=== PATIENT | female | born 1970 | race Caucasian/White ===

== ENCOUNTER 2022-07-25 15:52 | Inpatient (IN) | payer OTHER ==
[~2022-07-25] VITALS: Ht 165.1 cm; Wt 92.7 kg
[2022-07-25 15:52] VITALS: BP_SYST 134
--- NOTE | 2022-07-25 15:55 | NUR ---
Patient triaged and placed in waiting room. VSS and patient appears in no acute distress at this time. Accompanied by SELF, awaiting available bed, and MD notified of need for MSE.
--- NOTE | 2022-07-25 16:04 | NUR ---
SEEN AND EVALUATED BY DR RANGEL IN TRIAGE ROOM
[2022-07-25] MEDS ORDERED: NACL 0.9% 1,000 ML IV ONE ×2 (16:15→17:45)
[2022-07-25] MEDS ORDERED: MORPHINE 4 MG INJ. 4 MG/ML VIAL IVP ONE (16:15)
[2022-07-25] MEDS ORDERED: ONDANSETRON HCL 4 MG/2 ML VIAL IVP ONE (16:15)
[2022-07-25 17:12] LABS: BASOPHILS % (AUTO) 0.3 % (0.0-2.0); EOSINOPHILS # (AUTO) 0.1 K/uL (0.0-0.4); EOSINOPHILS % (AUTO) 0.8 % (0.0-4.0); HEMOGLOBIN 14.8 g/dL (12.0-16.0); LYMPHOCYTES # (AUTO) 2.5 K/uL (1.0-5.5); LYMPHOCYTES % (AUTO) 23.8 % (20.5-51.5); MEAN CORPUSCULAR HEMOGLOBIN 31 pg (27-31); MEAN CORPUSCULAR HGB CONC 35 % (32-36); MEAN CORPUSCULAR VOLUME 89 fL (79.0-98.0); MONOCYTES # (AUTO) 0.5 K/uL (0.0-1.0); MONOCYTES % (AUTO) 5.1 % (1.7-9.3); NEUTROPHILS # (AUTO) 7.5 K/uL (1.8-7.7); PLATELET COUNT (AUTO) 279 K/uL (130-430); RED BLOOD CELL COUNT(AUTO) 4.84 MIL/uL (4.2-6.2); RED CELL DISTRIBUTION WIDTH 13.1 % (9.0-15.0); WHITE BLOOD COUNT (AUTO) 10.7 K/uL (4.8-10.8)
[2022-07-25 17:35] LABS: CALCIUM 9.2 mg/dL (8.4-11.0); CREATININE 0.62 mg/dL (0.55-1.30)
[2022-07-25 17:40] LABS: ALBUMIN 3.7 g/dL (3.4-4.8); TOTAL BILIRUBIN 0.9 mg/dL (0.0-1.0)
--- NOTE | 2022-07-25 18:23 | NUR ---
BROUGHT BACK TO BED #7 AND REPORT GIVEN TO AGGIE
--- NOTE | 2022-07-25 19:45 | NUR ---
PT RESTING IN BED WITH EYES OPEN. PT VSS. PT REPORTING ABD PAIN 7/10. EVEN AND UNLABORED RESP NOTED.
[2022-07-25] MEDS ORDERED: ONDANSETRON HCL 4 MG/2 ML VIAL ONE (20:02)
[2022-07-25] MEDS ORDERED: MORPHINE 4 MG INJ. 4 MG/ML VIAL ONE (20:02)
[2022-07-25] MEDS ORDERED: NALOXONE HCL 0.4 MG/ML AMP (NARCAN) IVP PRN ×2 (20:30)
[2022-07-25] MEDS ORDERED: DEXTROSE 50% JECT 50 ML DISP.SYRIN IVP PRN (20:30)
[2022-07-25] MEDS ORDERED: ACETAMINOPHEN 650 MG/20.3 ML UDC GT PRN (20:30)
[2022-07-25] MEDS ORDERED: HYDROmorphone 1 MG/ML INJ. CARTRIDGE IVP PRN (20:30)
[2022-07-25] MEDS ORDERED: ONDANSETRON HCL 4 MG/2 ML VIAL IVP PRN (20:30)
--- NOTE | 2022-07-25 20:38 | NUR ---
COVID SWAB OBTAINED AND SENT TO LAB.
[2022-07-25] MEDS ORDERED: ROSU10TA2 PO (20:40)
[2022-07-25] MEDS ORDERED: LEVO112T5 PO (20:40)
[2022-07-25] MEDS ORDERED: GLIP10TA11 PO (20:40)
[2022-07-25] MEDS ORDERED: VITD400 PO (20:40)
[2022-07-25] MEDS ORDERED: LOSA25TA3 PO (20:40)
[2022-07-25] MEDS ORDERED: METF-379 PO (20:40)
--- NOTE | 2022-07-25 20:41 | NUR ---
Admit bed requested Patient will be admitted to care of Dr. BACH. Admitted to MED SURG unit. Diagnosis BILIARY COLIC AND CBD STONE Inpatient (Yes or No) YES Observation (Yes or No) NO Orientation concerns or request close to nursing station (Yes or No) NO Covid Status NEGATIVE On vent or bipap NO Isolation requirements NO Needs a sitter NO From Home (Yes or if No enter name of facility) YES Requires Dialysis (Yes or No) NO Med Rec Completed (Yes of No) YES
--- NOTE | 2022-07-25 20:42 | NUR ---
MED REC COMPLETED, INFORMATION PROVIDED BY PT.
--- NOTE | 2022-07-25 21:37 | NUR ---
Patient will be admitted to care of DR. BACH. Admitted to MED SURG unit. Will go to room 117. Belongings list completed. Complete and up to date summary report printed. SBAR report given TO ISAIAS STANLEY at bedside with opportunity for questions.
[2022-07-25 21:45] VITALS: BP_SYST 128
[2022-07-25 21:52] VITALS: BP_SYST 128
[2022-07-25] MEDS: HYDROcodone/ACETAMIN 5-325 MG TAB (NORCO/ VICODIN) PO PRN (22:45)
[2022-07-25] MEDS: FAMOTIDINE PF 20 MG/2 ML VIAL IVP SCH (22:45)
[2022-07-25] MEDS: metroNIDAZOLE 500 mg/NS 100 ML IV SCH (22:59)
[2022-07-25] MEDS: LR 1,000 ML IV SCH (22:59)
--- NOTE | 2022-07-25 23:55 | NUR ---
Received pt from ED at 2145 pm. Pt awake and oriented. Ambulatory. C/o mid abdominal pain. no c/o Nausea. Started Levaquin 500 mg ivpb and [place] 5-325 mg 1 tab po with Pepcid 20 mg ivp. Then when Levaqiun infusion was almost completed pt c/o whole body itching-itching stated with beginning of Levaquin infusion. Called Dr Adame and d/c'd Levaquin order and given Benadryl 25 mg ivp.
[2022-07-26] MEDS ORDERED: DIPHENHYDRAMINE INJ 50 MG/ML VIAL IVP PRN (00:15)
[2022-07-26 00:26] VITALS: BP_SYST 141
--- NOTE | 2022-07-26 03:56 | NUR ---
Consultation Paged Reason for Consultation: Acute Pancreatitis, CBD Stone Was consult called: Y Person who was notified: Floresita Consulting Physician: Dr. Fontenot (Dr. Carmen is spinneret person) Ordering Physician: Dr. Adame
--- NOTE | 2022-07-26 04:23 | NUR ---
No more c/o itching. Clear liquid diet. IVF LR @ 150 ml/hr on Lt AC # 20 G. Pt slept after Benadryl ivp.
[2022-07-26] MEDS: metroNIDAZOLE 500 mg/NS 100 ML IV SCH ×3 (05:39→22:33)
[2022-07-26] MEDS: LEVOTHYROXINE SODIUM 0.112 MG TABLET PO SCH (05:42)
[2022-07-26] MEDS: LR 1,000 ML IV SCH ×3 (05:48→17:05)
[2022-07-26 06:13] LABS: BASOPHILS % (AUTO) 0.3 % (0.0-2.0); EOSINOPHILS # (AUTO) 0.2 K/uL (0.0-0.4); EOSINOPHILS % (AUTO) 2.1 % (0.0-4.0); HEMATOCRIT 40.1 % (36-48); HEMOGLOBIN 13.6 g/dL (12.0-16.0); LYMPHOCYTES # (AUTO) 2.9 K/uL (1.0-5.5); LYMPHOCYTES % (AUTO) 33.5 % (20.5-51.5); MEAN CORPUSCULAR HEMOGLOBIN 30 pg (27-31); MEAN CORPUSCULAR HGB CONC 34 % (32-36); MEAN CORPUSCULAR VOLUME 90 fL (79.0-98.0); MONOCYTES # (AUTO) 0.6 K/uL (0.0-1.0); MONOCYTES % (AUTO) 7.2 % (1.7-9.3); NEUTROPHILS % (AUTO) 56.9 % (40.0-70.0); PLATELET COUNT (AUTO) 252 K/uL (130-430); RED BLOOD CELL COUNT(AUTO) 4.46 MIL/uL (4.2-6.2); RED CELL DISTRIBUTION WIDTH 12.9 % (9.0-15.0); WHITE BLOOD COUNT (AUTO) 8.7 K/uL (4.8-10.8)
[2022-07-26 06:32] LABS: BILIRUBIN,URINE 1+ (NEGATIVE); COLOR,URINE YELLOW (YELLOW); GLUCOSE,URINE NEGATIVE (NEGATIVE); KETONES,URINE TRACE (NEGATIVE); LEUKOCYTE ESTERASE ,URINE TRACE (NEGATIVE); NITRITE, URINE NEGATIVE (NEGATIVE); PH,URINE 5.5 (5.0-8.0); PROTEIN URINE NEGATIVE (NEGATIVE); UROBILINOGEN,URINE 0.2 (0.2-1.0)
--- NOTE | 2022-07-26 06:36 | NUR ---
PT'S RECEIVING FLAGYL 500 MG IVPB- NO C/O ITCHING. AMBULATORY. NO BM. NO C/O ABDOMINAL PAIN.
[2022-07-26 06:38] LABS: BLOOD, URINE TRACE (NEGATIVE)
[2022-07-26 06:39] LABS: CLARITY/URINE SLIGHTLY CLOUDY (CLEAR)
[2022-07-26 06:45] LABS: BACTERIA,URINE FEW /HPF (None Seen)
[2022-07-26 06:46] LABS: MUCUS,URINE 1+ /LPF (None Seen)
[2022-07-26 07:37] LABS: ALBUMIN 2.8 g/dL (3.4-4.8); CALCIUM 8.3 mg/dL (8.4-11.0); CREATININE 0.54 mg/dL (0.55-1.30); PHOSPHORUS 4.4 mg/dL (2.7-4.5); TOTAL BILIRUBIN 0.8 mg/dL (0.0-1.0)
--- NOTE | 2022-07-26 07:44 | NUR ---
SBAR was given to Shanna STANLEY.
[2022-07-26 08:00] VITALS: BP_SYST 155
[2022-07-26] MEDS: CHOLECALCIFEROL (VITAMIN D-3) 400 UNIT TABLET PO SCH (08:56)
[2022-07-26] MEDS: LOSARTAN POTASSIUM 25 MG TABLET PO SCH (08:56)
[2022-07-26] MEDS: HYDROcodone/ACETAMIN 5-325 MG TAB (NORCO/ VICODIN) PO PRN ×2 (08:56→17:12)
[2022-07-26] MEDS: FAMOTIDINE PF 20 MG/2 ML VIAL IVP SCH ×2 (08:56→22:32)
[2022-07-26 11:58] VITALS: BP_SYST 128
[2022-07-26] MEDS: INSULIN REGULAR, HUMAN 100 UNITS/ML, 3 ML VIAL (humuLIN R) SUBCUT PRN (12:09)
[2022-07-26 16:41] VITALS: BP_SYST 130
--- NOTE | 2022-07-26 18:36 | NUR ---
PATIENT RESTING IN BED, AAO x4, RESPIRATIONS EVEN AND UL ON RA, DENIES PAIN/DISCOMFORT. ALL NEEDS MET. IVF INFUSING PER MD ORDER, IV SITE WNL. SAFETY MEASURES IN PLACE, CALL LIGHT IN REACH. WILL CONTINUE TO MONITOR AND ENDORSE TO PM NURSE FOR CONTINUITY OF CARE.
[2022-07-26 20:00] VITALS: BP_SYST 135
[2022-07-27] VITALS: BP_SYST 124
[2022-07-27] MEDS: HYDROcodone/ACETAMIN 5-325 MG TAB (NORCO/ VICODIN) PO PRN ×3 (02:25→20:15)
[2022-07-27] MEDS: LR 1,000 ML IV SCH ×4 (06:23→17:40)
[2022-07-27] MEDS: LEVOTHYROXINE SODIUM 0.112 MG TABLET PO SCH (06:23)
[2022-07-27] MEDS: metroNIDAZOLE 500 mg/NS 100 ML IV SCH ×3 (06:28→22:06)
[2022-07-27 07:26] LABS: BASOPHILS % (AUTO) 0.4 % (0.0-2.0); EOSINOPHILS # (AUTO) 0.2 K/uL (0.0-0.4); EOSINOPHILS % (AUTO) 2.5 % (0.0-4.0); HEMOGLOBIN 12.5 g/dL (12.0-16.0); LYMPHOCYTES # (AUTO) 2.7 K/uL (1.0-5.5); MEAN CORPUSCULAR HEMOGLOBIN 30 pg (27-31); MEAN CORPUSCULAR HGB CONC 34 % (32-36); MEAN CORPUSCULAR VOLUME 89 fL (79.0-98.0); MONOCYTES # (AUTO) 0.5 K/uL (0.0-1.0); NEUTROPHILS # (AUTO) 3.8 K/uL (1.8-7.7); NEUTROPHILS % (AUTO) 53.1 % (40.0-70.0); PLATELET COUNT (AUTO) 232 K/uL (130-430); RED BLOOD CELL COUNT(AUTO) 4.14 MIL/uL (4.2-6.2); RED CELL DISTRIBUTION WIDTH 13.2 % (9.0-15.0); WHITE BLOOD COUNT (AUTO) 7.2 K/uL (4.8-10.8)
--- NOTE | 2022-07-27 07:31 | NUR ---
Pt not in acute distress,denies pain this morning,able to make needs known,VSS, IVF infusing, NPO since midnight, no signsofhypo/hyperglycemia, endorsed care to oncoming RN.
[2022-07-27 07:37] LABS: ALBUMIN 2.7 g/dL (3.4-4.8); BILIRUBIN,DIRECT 0.2 mg/dL (0.0-0.3); CALCIUM 8.5 mg/dL (8.4-11.0); CREATININE 0.45 mg/dL (0.55-1.30); TOTAL BILIRUBIN 0.6 mg/dL (0.0-1.0)
[2022-07-27 07:48] LABS: PROTHROMBIN TIME 10.9 SECS (9.5-12.5)
[2022-07-27 08:00] VITALS: BP_SYST 140
[2022-07-27] MEDS: CHOLECALCIFEROL (VITAMIN D-3) 400 UNIT TABLET PO SCH ×2 (08:57→09:03)
[2022-07-27] MEDS: FAMOTIDINE PF 20 MG/2 ML VIAL IVP SCH ×2 (08:57→20:14)
[2022-07-27] MEDS: LOSARTAN POTASSIUM 25 MG TABLET PO SCH ×2 (08:57→09:03)
[2022-07-27] MEDS ORDERED: INDOMETHACIN 50 MG SUPP.RECT RC ONE (10:30)
[2022-07-27] MEDS ORDERED: ONDANSETRON HCL 4 MG/2 ML VIAL ONE (11:50)
[2022-07-27] MEDS ORDERED: PROPOFOL 200MG/ 20ML VIAL (DIPRIVAN) IV ONE (11:50)
[2022-07-27] MEDS ORDERED: METOCLOPRAMIDE HCL 10 MG/2 ML VIAL ONE (11:50)
[2022-07-27] MEDS ORDERED: SUCCINYLCHOLINE CHLORIDE 20 MG/ML(QUELICIN) ONE (11:50)
[2022-07-27] MEDS ORDERED: KETOROLAC TROMETHAMINE 30 MG VIAL ONE (11:50)
[2022-07-27] MEDS ORDERED: GLYCOPYRROLATE 0.2 MG/ML VIAL ONE (11:50)
[2022-07-27] MEDS ORDERED: ceFAZolin SODIUM 1 GM VIAL ONE (11:50)
[2022-07-27] MEDS ORDERED: LR 1,000 ML IV.SOLN IV ONE (11:50)
[2022-07-27] MEDS ORDERED: ROCURONIUM BROMIDE 10 MG/ML (ZEMURON) ONE (11:50)
[2022-07-27] MEDS ORDERED: MIDAZOLAM HCL 2 MG/2 ML VIAL (VERSED) ONE (11:50)
[2022-07-27] MEDS ORDERED: fentaNYL CITRATE/PF 100 MCG/2 ML AMP ONE (11:50)
[2022-07-27] MEDS ORDERED: SEVOFLURANE 15 MIN GAS INH ONE ×2 (11:50)
[2022-07-27] MEDS ORDERED: ONDANSETRON HCL 4 MG/2 ML VIAL IVP PRN (12:45)
[2022-07-27] MEDS ORDERED: METOCLOPRAMIDE HCL 10 MG/2 ML VIAL IVP PRN (12:45)
[2022-07-27] MEDS ORDERED: NALOXONE HCL 0.4 MG/ML AMP (NARCAN) IVP PRN (12:45)
[2022-07-27] MEDS ORDERED: HYDROmorphone 1 MG/ML INJ. CARTRIDGE IVP PRN (12:45)
[2022-07-27] MEDS ORDERED: KETOROLAC TROMETHAMINE 30 MG VIAL IVP PRN (12:45)
[2022-07-27 13:14] VITALS: BP_SYST 140
[2022-07-27 14:23] VITALS: BP_SYST 128
--- NOTE | 2022-07-27 14:23 | NUR ---
PATIENT BACK FROM O.R. PATIENT IN STABLE CONDITION. NO COMPLAINS OF PAIN. VS STABLE.
[2022-07-28] MEDS: LR 1,000 ML IV SCH ×3 (01:01→16:51)
[2022-07-28] MEDS: LEVOTHYROXINE SODIUM 0.112 MG TABLET PO SCH (06:21)
[2022-07-28] MEDS: metroNIDAZOLE 500 mg/NS 100 ML IV SCH ×3 (06:22→21:16)
[2022-07-28 07:55] VITALS: BP_SYST 145
[2022-07-28 07:58] LABS: ALBUMIN 2.8 g/dL (3.4-4.8); CALCIUM 8.6 mg/dL (8.4-11.0); CREATININE 0.5 mg/dL (0.55-1.30); TOTAL BILIRUBIN 0.7 mg/dL (0.0-1.0)
[2022-07-28 07:59] LABS: BASOPHILS % (AUTO) 0.2 % (0.0-2.0); EOSINOPHILS # (AUTO) 0.1 K/uL (0.0-0.4); EOSINOPHILS % (AUTO) 1.2 % (0.0-4.0); HEMATOCRIT 37.2 % (36-48); HEMOGLOBIN 12.6 g/dL (12.0-16.0); LYMPHOCYTES # (AUTO) 2.3 K/uL (1.0-5.5); LYMPHOCYTES % (AUTO) 29.3 % (20.5-51.5); MEAN CORPUSCULAR HEMOGLOBIN 30 pg (27-31); MEAN CORPUSCULAR HGB CONC 34 % (32-36); MEAN CORPUSCULAR VOLUME 89 fL (79.0-98.0); MONOCYTES # (AUTO) 0.6 K/uL (0.0-1.0); MONOCYTES % (AUTO) 7.9 % (1.7-9.3); NEUTROPHILS # (AUTO) 4.9 K/uL (1.8-7.7); NEUTROPHILS % (AUTO) 61.4 % (40.0-70.0); PLATELET COUNT (AUTO) 242 K/uL (130-430); RED BLOOD CELL COUNT(AUTO) 4.16 MIL/uL (4.2-6.2); RED CELL DISTRIBUTION WIDTH 12.8 % (9.0-15.0)
[2022-07-28 08:09] LABS: BILIRUBIN,DIRECT 0.3 mg/dL (0.0-0.3)
[2022-07-28] MEDS: LOSARTAN POTASSIUM 25 MG TABLET PO SCH (09:49)
[2022-07-28] MEDS: FAMOTIDINE PF 20 MG/2 ML VIAL IVP SCH ×2 (09:49→20:31)
--- NOTE | 2022-07-28 10:10 | NUR ---
LUKE TAM FOR MEDREC AND BP. Addendum: 07/28/22 at 1011 by Rambo Lobo RN AMADOU PT. PLS DISREGARD THIS NOTE.
--- NOTE | 2022-07-28 10:11 | NUR ---
PAGED DR BACH FOR ORDER FOR SURGICAL CONSULT.
[2022-07-28] MEDS: HYDROcodone/ACETAMIN 5-325 MG TAB (NORCO/ VICODIN) PO PRN ×2 (11:48→20:46)
[2022-07-28] MEDS: INSULIN REGULAR, HUMAN 100 UNITS/ML, 3 ML VIAL (humuLIN R) SUBCUT PRN ×3 (11:52→20:47)
--- NOTE | 2022-07-28 13:52 | NUR ---
CONSULTATION PAGED/CALLED Reason for Consultation: [] CHOLECYSTECTOMY Person Who was Notified: [] ROMA Consulting Physician: [] DR DUNHAM Research Clerk Specialty: [] GEN SURGEON Ordering Physician: [] DR BACH
[2022-07-28 16:10] VITALS: BP_SYST 137
[2022-07-28 20:15] VITALS: BP_SYST 138
[2022-07-29 00:15] VITALS: BP_SYST 126
[2022-07-29] MEDS: LR 1,000 ML IV SCH ×4 (00:43→17:54)
[2022-07-29] MEDS: metroNIDAZOLE 500 mg/NS 100 ML IV SCH ×3 (05:39→21:10)
[2022-07-29] MEDS: LEVOTHYROXINE SODIUM 0.112 MG TABLET PO SCH (06:00)
--- NOTE | 2022-07-29 06:00 | NUR ---
Closing notes Pt awake, resting, no s/s distress noted. BS checked 158. No c/o pain at this time. Pt ambulates to bathroom. IVF infusing at ordered rate L. AC no s/s infiltration. Call light within reach. To endorse to AM nurse.
[2022-07-29] MEDS: INSULIN REGULAR, HUMAN 100 UNITS/ML, 3 ML VIAL (humuLIN R) SUBCUT PRN ×4 (06:01→22:01)
[2022-07-29 06:54] LABS: BASOPHILS % (AUTO) 0.4 % (0.0-2.0); EOSINOPHILS # (AUTO) 0.2 K/uL (0.0-0.4); EOSINOPHILS % (AUTO) 3.3 % (0.0-4.0); HEMATOCRIT 34.4 % (36-48); HEMOGLOBIN 11.9 g/dL (12.0-16.0); LYMPHOCYTES # (AUTO) 2.1 K/uL (1.0-5.5); LYMPHOCYTES % (AUTO) 29.8 % (20.5-51.5); MEAN CORPUSCULAR HEMOGLOBIN 31 pg (27-31); MEAN CORPUSCULAR HGB CONC 35 % (32-36); MEAN CORPUSCULAR VOLUME 90 fL (79.0-98.0); MONOCYTES # (AUTO) 0.7 K/uL (0.0-1.0); MONOCYTES % (AUTO) 9.5 % (1.7-9.3); PLATELET COUNT (AUTO) 217 K/uL (130-430); RED BLOOD CELL COUNT(AUTO) 3.85 MIL/uL (4.2-6.2); RED CELL DISTRIBUTION WIDTH 12.8 % (9.0-15.0); WHITE BLOOD COUNT (AUTO) 6.9 K/uL (4.8-10.8)
[2022-07-29 07:27] LABS: ALBUMIN 2.7 g/dL (3.4-4.8); BILIRUBIN,DIRECT 0.2 mg/dL (0.0-0.3); CALCIUM 8.4 mg/dL (8.4-11.0); CREATININE 0.48 mg/dL (0.55-1.30); TOTAL BILIRUBIN 0.6 mg/dL (0.0-1.0)
[2022-07-29 07:46] VITALS: BP_SYST 134
[2022-07-29] MEDS: LOSARTAN POTASSIUM 25 MG TABLET PO SCH (08:28)
[2022-07-29] MEDS: CHOLECALCIFEROL (VITAMIN D-3) 400 UNIT TABLET PO SCH (08:28)
[2022-07-29] MEDS: FAMOTIDINE PF 20 MG/2 ML VIAL IVP SCH ×2 (08:29→21:10)
[2022-07-29 17:45] VITALS: BP_SYST 128
--- NOTE | 2022-07-29 18:58 | NUR ---
PT HAS BEEN STABLE THE WHOLE SHIFT, NO C/O OF PAIN. CONTINUED ON CLEAR LIQUIDS. WILL BE NPO P MN FOR SURGERY IN AM. CONSENT IRENA BY PT.
[2022-07-29 20:05] VITALS: BP_SYST 147
--- NOTE | 2022-07-29 21:16 | NUR ---
Opening notes Pt AAOx4, working on her laptop, VSS. No c/o pain. IVF infusing at ordered rate L. AC 20G clear and patent. Pt updated with plan of care re surgery tomorrow and NPO after midnight, pt verbalized understanding. Call light within reach. To monitor.
--- NOTE | 2022-07-30 00:20 | NUR ---
PT NPO for surgery in AM.
[2022-07-30 00:30] VITALS: BP_SYST 144
[2022-07-30] MEDS: LR 1,000 ML IV SCH ×4 (02:00→20:50)
[2022-07-30] MEDS: metroNIDAZOLE 500 mg/NS 100 ML IV SCH ×3 (05:03→21:02)
[2022-07-30] MEDS: LEVOTHYROXINE SODIUM 0.112 MG TABLET PO SCH (06:07)
[2022-07-30 08:17] VITALS: BP_SYST 152
[2022-07-30 08:26] LABS: ALBUMIN 2.6 g/dL (3.4-4.8); BASOPHILS % (AUTO) 0.2 % (0.0-2.0); CALCIUM 8.5 mg/dL (8.4-11.0); CREATININE 0.39 mg/dL (0.55-1.30); EOSINOPHILS # (AUTO) 0.3 K/uL (0.0-0.4); HEMATOCRIT 35.3 % (36-48); LYMPHOCYTES # (AUTO) 2.1 K/uL (1.0-5.5); LYMPHOCYTES % (AUTO) 24.5 % (20.5-51.5); MEAN CORPUSCULAR HEMOGLOBIN 30 pg (27-31); MEAN CORPUSCULAR HGB CONC 34 % (32-36); MEAN CORPUSCULAR VOLUME 89 fL (79.0-98.0); MONOCYTES # (AUTO) 0.7 K/uL (0.0-1.0); MONOCYTES % (AUTO) 7.8 % (1.7-9.3); NEUTROPHILS # (AUTO) 5.5 K/uL (1.8-7.7); NEUTROPHILS % (AUTO) 64.5 % (40.0-70.0); PLATELET COUNT (AUTO) 231 K/uL (130-430); RED BLOOD CELL COUNT(AUTO) 3.97 MIL/uL (4.2-6.2); RED CELL DISTRIBUTION WIDTH 12.7 % (9.0-15.0); TOTAL BILIRUBIN 0.5 mg/dL (0.0-1.0); WHITE BLOOD COUNT (AUTO) 8.5 K/uL (4.8-10.8)
[2022-07-30 08:33] LABS: INR 1.1 (0.8-1.2); PROTHROMBIN TIME 11.3 SECS (9.5-12.5)
[2022-07-30] MEDS: FAMOTIDINE PF 20 MG/2 ML VIAL IVP SCH ×2 (09:19→20:51)
[2022-07-30 13:14] VITALS: BP_SYST 153
[2022-07-30] MEDS ORDERED: POTASSIUM CHLORIDE 40 MEQ in NS 250 ML IV ONE (15:00)
[2022-07-30] MEDS ORDERED: NS IRRIG SOLN 1000 ML IR ONE (17:54)
[2022-07-30] MEDS ORDERED: NS 1000 ML IV.SOLN IV ONE (17:54)
[2022-07-30] MEDS ORDERED: DEXAMETHASONE SOD PHOSPHATE 4 MG/ML VIAL ONE (17:54)
[2022-07-30] MEDS ORDERED: MIDAZOLAM HCL 2 MG/2 ML VIAL (VERSED) ONE (17:54)
[2022-07-30] MEDS ORDERED: ceFAZolin SODIUM 2 GM VIAL ONE (17:54)
[2022-07-30] MEDS ORDERED: SEVOFLURANE 15 MIN GAS INH ONE (17:54)
[2022-07-30] MEDS ORDERED: LIDOCAINE 1% 10 MG/ML, 20 ML MDV ONE (17:54)
[2022-07-30] MEDS ORDERED: BUPIVACAINE /EPINEPHRINE/PF 0.5% 30 ML VIAL INJ ONE (17:54)
[2022-07-30] MEDS ORDERED: SUGAMMADEX SODIUM 200 MG/2 ML VIAL IV ONE (17:54)
[2022-07-30] MEDS ORDERED: GLYCOPYRROLATE 0.2 MG/ML VIAL ONE (17:54)
[2022-07-30] MEDS ORDERED: fentaNYL CITRATE/PF 100 MCG/2 ML AMP ONE (17:54)
[2022-07-30] MEDS ORDERED: ONDANSETRON HCL 4 MG/2 ML VIAL ONE (17:54)
[2022-07-30] MEDS ORDERED: LR 1,000 ML IV.SOLN IV ONE (17:54)
[2022-07-30] MEDS ORDERED: ROCURONIUM BROMIDE 10 MG/ML (ZEMURON) ONE (17:54)
[2022-07-30] MEDS ORDERED: PROPOFOL 200MG/ 20ML VIAL (DIPRIVAN) IV ONE (17:54)
[2022-07-30] MEDS ORDERED: METOCLOPRAMIDE HCL 10 MG/2 ML VIAL ONE (17:54)
[2022-07-30 18:48] VITALS: BP_SYST 129
[2022-07-30] MEDS ORDERED: ACETAMINOPHEN 325 MG TABLET PO PRN (19:15)
[2022-07-30] MEDS ORDERED: D5/0.45 NS 1,000 ML IV SCH (19:15)
[2022-07-30] MEDS ORDERED: HYDROmorphone 1 MG/ML INJ. CARTRIDGE IVP PRN (19:15)
[2022-07-30] MEDS ORDERED: NALOXONE HCL 0.4 MG/ML AMP (NARCAN) IVP PRN ×2 (19:15)
[2022-07-30] MEDS ORDERED: HYDROcodone/ACETAMIN 5-325 MG TAB (NORCO/ VICODIN) PO PRN (19:15)
[2022-07-30] MEDS ORDERED: metroNIDAZOLE 500 mg/NS 100 ML IV SCH (19:15)
[2022-07-30] MEDS ORDERED: ONDANSETRON HCL 4 MG/2 ML VIAL IVP PRN (19:15)
[2022-07-30 20:25] VITALS: BP_SYST 139
--- NOTE | 2022-07-30 20:30 | NUR ---
RECEIVED PT FROM OR VIA JANET POLLARD AOX4, S/O LAP DENISE, TWO IV ACCESS ON THE L HAND, VSS, 4 ABD INCISIONS, CLEAN, DRY AND INTACT, COVERED WITH PRESSURE DSG AND TEGADERM. PT STARTED ON IV FLUID LR AT 150CC, NOT VOIDED POST SURGERY, STATED SHE DOES NOT FEEL LIKE SHE NEEDS TO VOID AT THIS TIME, SCD ON BLE, FAMILY AT BEDSIDE, WILL CONTINUE WITH PLAN OF CARE
[2022-07-30] MEDS: CEFAZOLIN 2 GM IVPB PREMIX 50 ML IV SCH (20:50)
[2022-07-30] MEDS: INSULIN REGULAR, HUMAN 100 UNITS/ML, 3 ML VIAL (humuLIN R) SUBCUT PRN (21:05)
[2022-07-31 00:18] VITALS: BP_SYST 150
[2022-07-31] MEDS: LR 1,000 ML IV SCH (03:08)
[2022-07-31] MEDS: CEFAZOLIN 2 GM IVPB PREMIX 50 ML IV SCH (05:28)
[2022-07-31] MEDS: metroNIDAZOLE 500 mg/NS 100 ML IV SCH ×2 (05:28→14:58)
[2022-07-31] MEDS: LEVOTHYROXINE SODIUM 0.112 MG TABLET PO SCH (06:09)
[2022-07-31] MEDS: INSULIN REGULAR, HUMAN 100 UNITS/ML, 3 ML VIAL (humuLIN R) SUBCUT PRN ×2 (06:11→12:19)
--- NOTE | 2022-07-31 06:59 | NUR ---
PT AWAKE IN BED, AOX4, S/O LAP DENISE, EVEN AND UNLABORED BREATHING, DENIED SOB,CP,N/V OR PAIN,VSS, 4 ABD INCISIONS, CLEAN, DRY AND INTACT, COVERED WITH PRESSURE DSG AND TEGADERM. PT STARTED ON LR AT 150CC, VOIDED W/O DIFFICULTY, SCD ON BLE, NOW TOLERATING CLEAR LIQUID DIET, BPR,WILL ENDORSE TO INCOMING RN
[2022-07-31 07:04] LABS: BASOPHILS % (AUTO) 0.1 % (0.0-2.0); HEMATOCRIT 34.9 % (36-48); LYMPHOCYTES # (AUTO) 1.6 K/uL (1.0-5.5); LYMPHOCYTES % (AUTO) 17.1 % (20.5-51.5); MEAN CORPUSCULAR HEMOGLOBIN 31 pg (27-31); MEAN CORPUSCULAR HGB CONC 34 % (32-36); MEAN CORPUSCULAR VOLUME 89 fL (79.0-98.0); MONOCYTES # (AUTO) 0.7 K/uL (0.0-1.0); MONOCYTES % (AUTO) 7.1 % (1.7-9.3); NEUTROPHILS % (AUTO) 75.7 % (40.0-70.0); PLATELET COUNT (AUTO) 244 K/uL (130-430); RED BLOOD CELL COUNT(AUTO) 3.91 MIL/uL (4.2-6.2); RED CELL DISTRIBUTION WIDTH 12.7 % (9.0-15.0); WHITE BLOOD COUNT (AUTO) 9.3 K/uL (4.8-10.8)
[2022-07-31 08:18] LABS: ALBUMIN 2.7 g/dL (3.4-4.8); CALCIUM 8.5 mg/dL (8.4-11.0); CREATININE 0.62 mg/dL (0.55-1.30); TOTAL BILIRUBIN 0.6 mg/dL (0.0-1.0)
[2022-07-31] MEDS: FAMOTIDINE PF 20 MG/2 ML VIAL IVP SCH (09:58)
[2022-07-31] MEDS: CHOLECALCIFEROL (VITAMIN D-3) 400 UNIT TABLET PO SCH (09:59)
[2022-07-31] MEDS: LOSARTAN POTASSIUM 25 MG TABLET PO SCH (10:00)
[2022-07-31 11:41] VITALS: BP_SYST 143
--- NOTE | 2022-07-31 16:11 | NUR ---
This CM spoke with patient regarding order for discharge to home with HH for disease management. Patient states she does not need the HH services as she can attend classes for diabetes management at [facility]. Patient feels that she can get disease management services education and management also at [facility]. patient also states that she works as an HR rep in [place] and lives in [place]. She leaves her house at 0600 and returns around 1700. " I don't have time for any home health services and can do without them"
[2022-07-31 19:00] VITALS: BP_SYST 145
== END 2022-07-31 17:00 | disposition home or self-care (01) | DRG 417 ==
LOC: SED 15:52 → SMU 18:39
PROVIDERS: ADMIT Internal Medicine; ATTEND Internal Medicine
PROC: 0FC98ZZ Extirpation of Matter from Common Bile Duct, Via Natural or Artificial Opening Endoscopic (ICD-10-PCS; 2022-07-27)
PROC: BF131ZZ Fluoroscopy of Gallbladder and Bile Ducts using Low Osmolar Contrast (ICD-10-PCS; 2022-07-27)
PROC: 0F798ZZ Dilation of Common Bile Duct, Via Natural or Artificial Opening Endoscopic (ICD-10-PCS; 2022-07-27)
PROC: 0FT44ZZ Resection of Gallbladder, Percutaneous Endoscopic Approach (ICD-10-PCS; principal; 2022-07-30 17:54)
DX: K80.20 Calculus of gallbladder without cholecystitis without obstruction (principal); K85.10 Biliary acute pancreatitis without necrosis or infection; R65.10 Systemic inflammatory response syndrome (SIRS) of non-infectious origin without acute organ dysfunction; K80.50 Calculus of bile duct without cholangitis or cholecystitis without obstruction; I10 Essential (primary) hypertension; E11.9 Type 2 diabetes mellitus without complications; E66.9 Obesity, unspecified; K76.0 Fatty (change of) liver, not elsewhere classified; K82.8 Other specified diseases of gallbladder; K66.0 Peritoneal adhesions (postprocedural) (postinfection); Z20.822 Contact with and (suspected) exposure to COVID-19; F17.200 Nicotine dependence, unspecified, uncomplicated; Z68.34 Body mass index [BMI] 34.0-34.9, adult
CPT/HCPCS: 36415; 71045; 74181; 74330-TC; 76705; 80048; 80053; 80061; 80076; 81000; 83037; 83690; 83735; 84100; 84703; 85025; 85610-TC; 85730-TC; 87040; 87081; 87086; 88304; 88305; 93005; 94010; 96374; 96375; 99285; C1727; C1769; J0330; J0690; J1100; J1200; J1815; J1885; J1956; J2001; J2270; J2405; J2704; J2765; J3010; J3465; J3480; J3490; J7030; J7050; J7120; Q9967